=== PATIENT | female | born 1995 | race Asian ===

== ENCOUNTER → 2024-08-19 | Outpatient (CLI) | payer BC, SELFPAY ==
[2024-08-19 16:34] LABS: Basophils # (Auto) 0.1 Thou/mm3 (0.0-0.2); Basophils % (Auto) 1 % (0-2.5); Eosinophils # (Auto) 0.1 Thou/mm3 (0.0-0.5); Eosinophils % (Auto) 1 % (0-10); Hematocrit 36.3 % (36.0-46.0); Hemoglobin 11.9 g/dL (12.0-16.0); Immature Granulocytes % (Auto) 2 % (0-0); Immature Granulocytes Auto 0.25 Thou/mm3 (0.00-0.00); Lymphocytes # (Auto) 2.2 Thou/mm3 (1.0-4.8); Lymphocytes % (Auto) 18 % (10-50); Mean Corpuscular HGB Conc 32.8 g/dl (31.0-37.0); Mean Corpuscular Hemoglobin 27.6 pg (25.0-35.0); Mean Corpuscular Volume 84 fL (80-100); Monocytes # (Auto) 0.7 Thou/mm3 (0.0-0.8); Monocytes % (Auto) 6 % (0-12); Neutrophils # (Auto) 8.7 Thou/mm3 (1.8-7.7); Neutrophils % (Auto) 72 % (37-80); Nucleated Red Blood Cell # 0.03 Thou/mm3 (0.00-0.00); Nucleated Red Blood Cell % 0 /100 WBC (0); Platelet Count 317 Thou/mm3 (140-440); RDW Standard Deviation 43.1 fL (36.4-46.3); Red Blood Count 4.31 Miln/mm3 (4.00-5.20); White Blood Count 12.1 Thou/mm3 (3.6-11.0)
[2024-08-19 17:07] LABS: Syphilis Nonreactive (Nonreactive)
== END | disposition home or self-care (01) ==
LOC: SLDO 15:16
PROVIDERS: Referring Provider Physician Assistant Medical; Visit Provider Physician Assistant Medical
DX: Z34.83 Encounter for supervision of other normal pregnancy, third trimester (principal)
CPT/HCPCS: 36415; 85025; 86780

== ENCOUNTER → 2024-09-27 | Outpatient (CLI) | payer BC, SELFPAY ==
[2024-09-28 09:04] LABS: BVAG Candida Negative (Negative); Bacterial Vaginosis Markers Negative (Negative); Candida glabrata Negative (Negative); Candida krusei PCR Negative (Negative); Trichomonas Negative (Negative)
== END | disposition home or self-care (01) ==
LOC: SLDO 15:38
PROVIDERS: PCP Physician Assistant Medical; Referring Provider Physician Assistant Medical; Visit Provider Physician Assistant Medical
DX: Z34.83 Encounter for supervision of other normal pregnancy, third trimester (principal)
CPT/HCPCS: 81514

== ENCOUNTER 2024-10-10 04:35 | Inpatient (IN) | payer BC, SELFPAY ==
--- NOTE | 2024-10-09 12:17 | ESHP_ITS ---
RE: JOSUÉ GASTON : 1995 DATE OF ADMISSION: 10/10/2024 HISTORY OF PRESENT ILLNESS: This is a 28-year-old 4, para 3-0-0-3 with a due date of 10/23/2023 with an intrauterine of 38 weeks and 1 day who presents for contractions at 2100 on 10/09. She is a Class B diabetes mellitus, well controlled on insulin. The patient has had serial ultrasounds in her demonstrating adequate interval growth. A maternal- medicine ultrasound showed normal anatomy. She reports normal movement. She denies any leaking or bleeding. ALLERGIES: NO KNOWN DRUG ALLERGIES. MEDICATIONS: 1. multivitamin one p.o. daily. 2. Aspirin 81 mg one p.o. daily. 3. Humulin N 30 units with breakfast and 20 units at bedtime. 4. Humalog 18 units with breakfast and 16 units with dinner. PAST MEDICAL HISTORY: Class B diabetes mellitus. FAMILY HISTORY: Denies. SOCIAL HISTORY: Denies any alcohol drug use or smoking. The patient is a travel counselor. OBSTETRIC HISTORY: 1. On 2012, 39-week normal vaginal delivery, 6 pound 9 ounce female complicated by pre-gestational diabetes. 2. 1999, 40-week vaginal delivery, 7.4 ounce female complicated by pre- gestational diabetes. 3. 2021, 40-week vaginal delivery 9 pound 4 ounce male complicated by gestational diabetes. PAST SURGICAL HISTORY: Cholecystectomy. REVIEW OF SYSTEMS: She denies any chest pain, palpitations, cough, fever, shortness of breath, or lower extremity pain. She denies any headache, change in vision, or right upper quadrant pain. PHYSICAL EXAMINATION: VITAL SIGNS: Blood pressure is 138/74, heart rate 88, respirations 18, temperature 98.2. HEENT: Oropharynx and sclerae are clear. LUNGS: Clear to auscultation bilaterally. HEART: Regular rate and rhythm. ABDOMEN: Gravid term size consistent with estimated weight 8 pounds. PELVIC: 4/60/-2/vtx/I per RN. EXTREMITIES: Nontender. SKIN: No gross rashes or lesions. NEUROLOGIC: No focal deficits. ASSESSMENT AND PLAN: Intrauterine at 38w2d in labor, class B diabetes mellitus. Anticipate spontaneous vaginal delivery. Informed consent was obtained. The patient is made aware of the risks, complications, alternatives, and benefits of operative vaginal delivery and delivery and agrees with these modes of delivery if indicated. DT: 11:29:43 TT: 12:15:00 Ref: [id number] - TID: [id number] MTDD
[2024-10-10] VITALS (245 sets, daily range): BP systolic 89–129; BP diastolic 50–92; PULSE 38–133; RESP 16–97; TEMP 36.5–37; O2SAT 56–100; BMI 34.9
[2024-10-10] MEDS: SODIUM CHLORIDE 0.9% 1000 ML 1,000 ML 100 ML IV ×4 (05:47→12:02)
[2024-10-10 08:03] LABS: Basophils # (Auto) 0.1 Thou/mm3 (0.0-0.2); Basophils % (Auto) 1 % (0-2.5); Eosinophils # (Auto) 0.2 Thou/mm3 (0.0-0.5); Eosinophils % (Auto) 1 % (0-10); Hematocrit 37.3 % (36.0-46.0); Hemoglobin 12.1 g/dL (12.0-16.0); Immature Granulocytes % (Auto) 1 % (0-0); Immature Granulocytes Auto 0.14 Thou/mm3 (0.00-0.00); Lymphocytes # (Auto) 2.9 Thou/mm3 (1.0-4.8); Lymphocytes % (Auto) 23 % (10-50); Mean Corpuscular HGB Conc 32.4 g/dl (31.0-37.0); Mean Corpuscular Hemoglobin 25.1 pg (25.0-35.0); Mean Corpuscular Volume 77 fL (80-100); Monocytes # (Auto) 0.8 Thou/mm3 (0.0-0.8); Monocytes % (Auto) 6 % (0-12); Neutrophils # (Auto) 8.6 Thou/mm3 (1.8-7.7); Neutrophils % (Auto) 68 % (37-80); Nucleated Red Blood Cell % 0 /100 WBC (0); Platelet Count 319 Thou/mm3 (140-440); RDW Standard Deviation 42.1 fL (36.4-46.3); Red Blood Count 4.82 Miln/mm3 (4.00-5.20); White Blood Count 12.7 Thou/mm3 (3.6-11.0)
[2024-10-10 08:41] LABS: Syphilis Nonreactive (Nonreactive)
--- NOTE | 2024-10-10 08:50 | PD.LDPN ---
Documentation for date of: 10/10/24 OB Labor Progress Note Pain Control Comments: None Pelvic Exam Dilation (cm): 4 Effacement (%): 70 station: -3 Amniotic membrane status: Intact Comments: Station too high for AROM Contractions Contraction frequency: q3-5 Status status: Category l Assessment and Plan Comments: Augment with Pitocin Anticipate
[2024-10-10] MEDS: OXYTOCIN in NS 30 units 30 UNIT/500 ML BAG IV (11:09)
[2024-10-10] MEDS: DEXTROSE 50%-WATER INJ 50 ML SYRINGE 25 ML IV (16:20)
[2024-10-10] MEDS: GENTAMICIN/NS 80 MG IVPB 80 MG/50 ML PIGGYBACK 50 MG IV (17:47)
--- NOTE | 2024-10-10 20:15 | PD.LDPN ---
Documentation for date of: 10/10/24 OB Labor Progress Note Pain Control Comments: Epidural Pelvic Exam Dilation (cm): 9 Effacement (%): 80 station: 0 Amniotic membrane status: Ruptured Comments: thin meconium RN aware. Contractions Contraction frequency: q3m Status status: Category l Assessment and Plan Comments: Anticipate .
[2024-10-10] MEDS: LIDOCAINE HCL 1% 20 ML VIAL INFL (20:49)
[2024-10-10] MEDS: OXYTOCIN in NS 20 units 20 UNIT/1,000 ML BAG 125 UNIT IV (20:54)
[2024-10-10] MEDS: BENZO/LANO/ALOE (Dermoplast) 60 GM CAN 1 SPRAY TOP (21:17)
[2024-10-10] MEDS: IBUPROFEN TAB 400 MG TABLET 800 MG PO (21:17)
--- NOTE | 2024-10-10 21:23 | OBDSUM_ITS ---
Shoulder Dystocia General Time head delivered:: 20:44 Traction performed:: none at any time Maneuvers/Procedures Iris: Order Maneuver Performed:: 1 Time begun:: :44 Time ended:: 20:45 Performed by:: De Alanis suprapubic pressure: Order Maneuver Performed:: 2 Time begun:: :44 Time ended:: 20:45 Performed by:: Hanna RN Was fundal Pressure applied? Fundal pressure applied:: No Shoulder Under Symphisis at head delivery:: left Immediate [place] Assessment Immediate assessment:: no apparent injury Surgical Team Notified Surgical team notified:: Yes Data ([facility]) Data : 4 Para: 3 Term: 2 : 1 : 0 Delivery Data ([facility]) Labor Data Stimulated/Augmented: Yes Method: Oxytocin ROM Date: 10/10/24 ROM Time: 20:04 Rupture Type: AROM Amniotic Fluid: Clear Delivery Data EDC: 10/23/24 Labor Onset Stage 1 Date: 10/10/24 Labor Onset Stage 1 Time: 10:29 Labor Onset Stage 2 Date: 10/10/24 Labor Onset Stage 2 Time: 20:36 Delivery Date: 10/10/24 Delivery Time: 20:45 Placenta Delivery Date: 10/10/24 Placenta Delivery Time: 20:04 Delivered by: Adeel Gtz Delivery nurse: Hanna Gardner Other staff at delivery: Nurse Other staff at delivery: Nanette Everett Delivery Method Delivery: Vaginal Delivery Type: Spontaneous Presentation: Vertex Position: OA Anesthesia Type Primary Anesthesia: Epidural Secondary Anesthesia: Local Placenta Placenta Delivery: Spontaneous Placenta Cultures Obtained: No Placenta Sent for Examination: No Cord Sample: Cord Blood Obtained Lacerations #1: Perineal: 3rd degree Perineal repair Sutures used for repair: other (0 chronic and 2-0 chromic) EBL Estimated blood loss (ml): 250 Umbilical Cord Umbilical Vessels: 3 Complications Complications: Shoulder Dystocia [place] Data ([facility]) [place] Data Gender: Female Infant Weight Grams: 3515 1 Minute Total: 9 5 Minute Total: 9
[2024-10-11] MEDS: AMPICILLIN/SULBAC INJ 3 GM in SODIUM CHLORIDE 0.9% 100 ML IV ×4 (00:14→19:50)
[2024-10-11 03:00] VITALS: BP 94/60; PULSE 107; RESP 16; TEMP 36.9; O2SAT 96
[2024-10-11] MEDS: ACETAMINOPHEN 325 MG TABLET 650 MG PO (03:16)
[2024-10-11 06:20] LABS: Basophils # (Auto) 0.1 Thou/mm3 (0.0-0.2); Basophils % (Auto) 0 % (0-2.5); Eosinophils # (Auto) 0.1 Thou/mm3 (0.0-0.5); Eosinophils % (Auto) 1 % (0-10); Hematocrit 29.7 % (36.0-46.0); Hemoglobin 9.6 g/dL (12.0-16.0); Immature Granulocytes % (Auto) 1 % (0-0); Immature Granulocytes Auto 0.07 Thou/mm3 (0.00-0.00); Lymphocytes # (Auto) 2.2 Thou/mm3 (1.0-4.8); Lymphocytes % (Auto) 16 % (10-50); Mean Corpuscular HGB Conc 32.3 g/dl (31.0-37.0); Mean Corpuscular Hemoglobin 25.3 pg (25.0-35.0); Mean Corpuscular Volume 78 fL (80-100); Monocytes # (Auto) 0.8 Thou/mm3 (0.0-0.8); Monocytes % (Auto) 6 % (0-12); Neutrophils # (Auto) 10.6 Thou/mm3 (1.8-7.7); Neutrophils % (Auto) 77 % (37-80); Nucleated Red Blood Cell % 0 /100 WBC (0); Platelet Count 257 Thou/mm3 (140-440); RDW Standard Deviation 43.3 fL (36.4-46.3); White Blood Count 13.7 Thou/mm3 (3.6-11.0)
[2024-10-11] MEDS: metFORMIN 500 MG TABLET PO ×2 (07:24→18:12)
[2024-10-11 07:32] VITALS: BP 100/67; PULSE 94; RESP 17; TEMP 36.6; O2SAT 95
--- NOTE | 2024-10-11 08:02 | PD.LDDS ---
DS: Providers Provider Date of admission: 10/10/24 05:15 Primary care physician: Physician No Primary/Family Admitting Provider: Adeel Gtz MD Attending Provider on Admission: Adeel Gtz MD Consults: 10/10/24 22:27 Referral Routine Comment: Attending Provider on DC: Adeel Gtz MD Discharging Provider: Adeel Gtz MD DS: Diagnosis Problem List Completed Was Problem List Reviewed/Reconciled?: Yes Summary/Hosp Course Time Spent with Patient Time attestation: Total time spent providing and/or coordinating discharge services: Exam Vital Signs Temp Pulse Resp BP Pulse Ox O2 Del Method 97.8 F 94 17 100/67 95 Room Air 10/11/24 07:32 10/11/24 07:32 10/11/24 07:32 10/11/24 07:32 10/11/24 07:32 10/11/24 07:32 Discharge Plan Plan Patient Disposition: HOME (Self Care) Patient condition on transfer: Stable Prescriptions/Referrals Prescriptions/Med Rec: New ibuprofen 600 mg tablet 600 mg PO Q6H PRN (Reason: pain) Qty: 30 0RF Jardiance 10 mg tablet 10 mg PO QDAY Qty: 30 2RF metformin 500 mg tablet 500 mg PO BIDWMEAL Qty: 60 2RF Discontinued Humulin N NPH U-100 Insulin 100 unit/mL suspension 30 unit SUBCUT BID Patient Comments: INJECT 30 UNIT SUBCUTANEOUSLY ONCE A DAY WITH BREAKFAST AND 20 UNITS AT BEDTIME DIRECTED . Rx Instructions: 30u with breakfast,20u at hs insulin lispro [Humalog KwikPen Insulin] 100 unit/mL insulin pen 18 unit SUBCUT BID Patient Comments: INJECT 18 UNITS SUBCUTANEOUSLY WITH BREAKFAST AND 16 UNITS WITH DINNER Referrals: No Primary/Family,Physician [Primary Care Provider] - Patient/Caregiver Discharge Instructions Discharge Activity: activity as tolerated Other Discharge Activity Instructions:: Follow up office 6 weeks. Print Language: Singaporean Stand Alone Forms: Cookie Award Info., Patient Portal Info Letter Discharge Order Discharge Orders: Discharge (Routine); Ordered 10/12/24 Ordered By: Adeel Gtz Planned Discharge Date 10/12/24
--- NOTE | 2024-10-11 08:37 | ESPR_ITS ---
RE: JOSUÉ GASTON : 1995 DATE OF SERVICE: 10/11/2024 S: day #1, the patient denies any problem or complaints. She is voiding. She is ambulating. She is tolerating diet. She is passing flatus. She denies any excessive vaginal bleeding. She denies any dizziness or lightheadedness. She denies any chest pain, palpitations, shortness of breath or lower extremity pain. O: Vital Signs: Blood pressure 94/60, heart rate 107, respirations 16, temperature 98.4, and pulse oximetry 96% on room air. Lungs: Clear to auscultation bilaterally. Heart: Regular rate and rhythm. Abdomen: Fundus is firm, nontender. Extremities: Nontender. Labs: Hemoglobin pre-delivery is 12.1 and post delivery is 9.6. A: 1. day #1, status post spontaneous vaginal delivery. 2. Chorioamnionitis. 3. Possible endometritis, continue Unasyn. 4. Tachycardia probably secondary to infection. 5. Anemia, but hemodynamically stable, repeat CBC in the morning. 6. Class B Diabetes Mellitus : Stop insulin. Begin oral hypoglycemics. Monitor BS P: I discussed with the patient, the nature of her condition and recommended treatment plan. All questions answered. DT: 07:29:30 TT: 08:36:00 Ref: [id number] - TID: [id number] MTDD
[2024-10-11] MEDS: DAPAGLIFLOZIN PROPANEDIOL 5 MG TABLET PO (09:15)
[2024-10-11] MEDS: IBUPROFEN TAB 400 MG TABLET 800 MG PO ×2 (09:17→18:14)
[2024-10-11 11:20] VITALS: BP 119/80; PULSE 92; RESP 16; TEMP 36.6; O2SAT 97
[2024-10-11 15:50] VITALS: BP 104/69; PULSE 99; RESP 18; TEMP 36.8; O2SAT 97
[2024-10-11 20:00] VITALS: BP 115/74; PULSE 88; RESP 16; TEMP 36.8; O2SAT 96
[2024-10-12] MEDS: AMPICILLIN/SULBAC INJ 3 GM in SODIUM CHLORIDE 0.9% 100 ML IV (01:48)
[2024-10-12 03:40] VITALS: BP 96/60; PULSE 93; RESP 18; TEMP 36.6; O2SAT 96
[2024-10-12 05:52] LABS: Basophils # (Auto) 0.1 Thou/mm3 (0.0-0.2); Basophils % (Auto) 1 % (0-2.5); Eosinophils # (Auto) 0.2 Thou/mm3 (0.0-0.5); Eosinophils % (Auto) 2 % (0-10); Hematocrit 31.5 % (36.0-46.0); Hemoglobin 10.2 g/dL (12.0-16.0); Immature Granulocytes % (Auto) 1 % (0-0); Immature Granulocytes Auto 0.08 Thou/mm3 (0.00-0.00); Lymphocytes # (Auto) 2.9 Thou/mm3 (1.0-4.8); Lymphocytes % (Auto) 26 % (10-50); Mean Corpuscular HGB Conc 32.4 g/dl (31.0-37.0); Mean Corpuscular Hemoglobin 25.3 pg (25.0-35.0); Mean Corpuscular Volume 78 fL (80-100); Monocytes # (Auto) 0.7 Thou/mm3 (0.0-0.8); Monocytes % (Auto) 6 % (0-12); Neutrophils # (Auto) 7.5 Thou/mm3 (1.8-7.7); Neutrophils % (Auto) 66 % (37-80); Nucleated Red Blood Cell % 0 /100 WBC (0); Platelet Count 269 Thou/mm3 (140-440); RDW Standard Deviation 43.3 fL (36.4-46.3); Red Blood Count 4.03 Miln/mm3 (4.00-5.20); White Blood Count 11.5 Thou/mm3 (3.6-11.0)
[2024-10-12] MEDS: metFORMIN 500 MG TABLET PO (07:38)
[2024-10-12] MEDS: IBUPROFEN TAB 400 MG TABLET 800 MG PO (07:38)
[2024-10-12 07:52] VITALS: BP 107/75; PULSE 105; RESP 18; TEMP 36.5; O2SAT 96
[2024-10-12] MEDS: DAPAGLIFLOZIN PROPANEDIOL 5 MG TABLET PO (08:50)
--- NOTE | 2024-10-12 09:24 | ESPR_ITS ---
RE: JOSUÉ GASTON : 1995 DATE OF SERVICE: 10/12/2024 SUBJECTIVE: day #2, the patient denies any problem or complaint. She is voiding. She is ambulating. She tolerated diet. She is passing flatus. She denies any excessive vaginal bleeding. She denies any dizziness or lightheadedness. She denies any chest pain, palpitations, shortness of breath, or lower extremity pain. OBJECTIVE: Vital Signs: Blood pressure 96/60, heart rate 93, respirations 18, temperature is 98, pulse ox is 96% on room air. Lungs: Clear to auscultation bilaterally. Heart: Regular rate and rhythm. Abdomen: Fundus is firm. Extremities: Nontender. LABORATORY DATA: Hemoglobin pre-delivery is 12.1, post-delivery is 10.2. White blood cell count is 11.5. ASSESSMENT: day #2, status post spontaneous vaginal delivery, chorioamnionitis, possible endometritis, resolving, tachycardia resolved, anemia, but hemodynamically stable, class B diabetes mellitus with blood sugars in the normal range on oral hypoglycemics. PLAN: Discharge home. Discharge instructions were given. Followup in the office in 6 weeks. DT: 07:18:42 TT: 09:23:00 Ref: [id number] - TID: [id number]
--- NOTE | 2024-10-12 10:28 | PC.NURSE ---
Cleared by oncology social worker
--- NOTE | 2024-10-12 11:37 | PC.SS ---
QUALITY CONTROL SYSTEMS MANAGER conducted bedside contact with the patient to address nursing referral indicating patient possessed history of anxiety. QUALITY CONTROL SYSTEMS MANAGER introduced self and role. Present with patient was FOB, Serina Ling. Patient gave permission for FOB to be present during discussion. QUALITY CONTROL SYSTEMS MANAGER informed patient of the basis of the referral. Patient confirmed past history of anxiety. Patient stated the presence of anxiety did not impeded daily functioning. Patient has not been diagnosed with anxiety nor has the patient accessed mental health services. Patient denies possessing current level of anxiety. Patient denies current intent/plan of SI/HI. , Agata; is the patient?s 4th child. Other children are ages 11, 4 and 2 years old. Patient is employed, not aligned with [employer], [employer] nor [employer]. Patient denies history of alcohol/drug abuse. Patient denies CWS intervention. Patient denies episodes of domestic violence. OB services provided by Dr. Gtz. Patient describes consistency with OB appointments. Infant delivered naturally. Patient plans on bottle feeding the . Patient has access to appropriate supplies and equipment; to include a car seat. FOB will provide transportation upon discharge. Patient describes possessing support system consisting of FOB and extended family. QUALITY CONTROL SYSTEMS MANAGER provided the patient with community resources to include Warm Line. No further intervention required at this time, perinatal social worker will be available to address any further concerns. QUALITY CONTROL SYSTEMS MANAGER updated bedside nurse.
== END 2024-10-12 10:34 | disposition home or self-care (01) | DRG 768 ==
LOC: S4NX 10-11 06:45 → S4SX 10-11 06:45
PROVIDERS: Admitting Provider Specialist; Visit Provider Specialist
DX: O66.0 Obstructed labor due to shoulder dystocia (principal); Z37.0 Single live birth; O24.32 Unspecified pre-existing diabetes mellitus in childbirth; O70.20 Third degree perineal laceration during delivery, unspecified; Z3A.38 38 weeks gestation of pregnancy; O77.0 Labor and delivery complicated by meconium in amniotic fluid; O99.893 Other specified diseases and conditions complicating puerperium; R00.0 Tachycardia, unspecified; O90.81 Anemia of the puerperium
CPT/HCPCS: 36415; 59025; 59409; 85025; 86780; 86850; 86900; 86901; J0290; J0295; J1580; J2590; J2795; J3010; J3490; J7030; J7050; J8499; A9270